=== PATIENT | male | born 1995 | race Caucasian/White ===

== ENCOUNTER 2019-12-15 16:09 | Emergency (ER) | payer OTHER ==
[~2019-12-15] VITALS: Ht 188 cm; Wt 92.2 kg
[2019-12-15] MEDS ORDERED: IBUPROFEN 600MG TAB PO ONE (17:00)
--- NOTE | 2019-12-15 17:23 | REPVR ---
PROCEDURE INFORMATION: Exam: XR Left Finger(s) Exam date and time: 12/15/2019 4:58 PM Age: 24 years old Clinical indication: Pain; Finger(s); Left; Additional info: Injury to L middle finger TECHNIQUE: Imaging protocol: XR Left fingers. Views: Minimum 2 views. COMPARISON: No relevant prior studies available. FINDINGS: Bones/joints: Small linear lucency in the distal phalanx of the 3rd finger may represent a nondisplaced fracture versus a vascular groove. Soft tissues: Soft tissue injury volar aspect of the 3rd finger. IMPRESSION: 1. Small linear lucency in the distal phalanx of the 3rd finger may represent a nondisplaced fracture versus a vascular groove. 2. Soft tissue injury volar aspect of the 3rd finger. Electronically signed by: Quinn Kc On 12/15/2019 17:23:23 PM
[2019-12-15] MEDS ORDERED: LIDOCAINE 2% MDV 20ML VIAL SC ONE (17:45)
[2019-12-15] MEDS ORDERED: ceFAZolin SOD 2 GM in IV 1 EA IV ONE (17:45)
[2019-12-15] MEDS ORDERED: KEFL500C17 PO (18:31)
[2019-12-15 18:42] VITALS: BP 111/61
== END 2019-12-15 19:23 | disposition home or self-care (01) ==
LOC: M ED 16:09
DX: S62.603B Fracture of unspecified phalanx of left middle finger, initial encounter for open fracture (principal); W23.0XXA Caught, crushed, jammed, or pinched between moving objects, initial encounter; Y92.099 Unspecified place in other non-institutional residence as the place of occurrence of the external cause; Y93.9 Activity, unspecified; Y99.9 Unspecified external cause status
CPT/HCPCS: 12001; 73140; 96365; 99284; J0690